=== PATIENT | female | born 1945 | race Caucasian/White ===

== ENCOUNTER 2019-01-10 08:39 | Day surgery (SDC) | payer MEDICARE, OTHER ==
[~2019-01-10 08:39] MED LIST: Lactated Ringers 1,000 ML IV ONE
[2019-01-10] MEDS ORDERED: DIPRIVAN 200 MG/20 ML IV ONE (08:40)
[2019-01-10] MEDS ORDERED: Ketamine HCl 50 MG/ML IJ ONE (08:40)
--- NOTE | 2019-01-10 08:44 | HP ---
DATE OF SURGERY: 01/10/2019 HISTORY OF PRESENT ILLNESS: The patient is a 72 year-old with no bloody stools, family history negative for colon cancer. No prior colonoscopy. Lost 30 pounds. She relays some psychosocial/environmental stressors. She does have some anemia of unclear etiology so she is in need of outpatient colonoscopy and EGD for further evaluation. PAST MEDICAL HISTORY: She has some iron deficiency anemia. History of depression, hypertension, reflux, osteoporosis in the past. PAST SURGICAL HISTORY: Cholecystectomy and tonsillectomy in the past. MEDICATIONS: Atenolol, divalproex, fluconazole, mirtazapine, Viibryd. ALLERGIES: NKDA. FAMILY HISTORY: Chronic obstructive pulmonary disease, hypertension, heart disease. SOCIAL HISTORY: No smoking or alcohol abuse. REVIEW OF SYSTEMS: Twelve systems reviewed per admission assessment otherwise pertinent for as noted above. PHYSICAL EXAMINATION: GENERAL: No acute distress. HEENT: Sclerae nonicteric. NECK: No JVD. CHEST: Clear to auscultation. CVS: Regular rate and rhythm. ABDOMEN: Soft, nontender. EXTREMITIES: No edema or cyanosis. NEURO: She has [place]'s chorea some choreiform movements and motions. IMPRESSION: Anemia unclear etiology. I feel the patient will benefit from EGD and colonoscopy to rule out upper and lower GI source. Shown the risk sheet and explained the procedure in detail but not limited to bleeding or infection, risk of bowel injury or perforation possibly requiring open procedure, risk of missed or nondiagnosis or incomplete exam possibly requiring barium enema, other studies or procedures. General risk of anesthesia or sedation but not limited to, risk of bowel prep. She understands and agrees to the planned procedure, will proceed with outpatient colonoscopy and EGD for anemia of unclear etiology.
[2019-01-10] MEDS ORDERED: Lactated Ringers 1,000 ML IV SCH (09:00)
[2019-01-10 12:28] VITALS: PULSE 82; O2SAT 97
[2019-01-10 12:44] VITALS: BP 148/68
--- NOTE | 2019-01-11 08:14 | OP ---
SURGERY DATE/TIME: 01/10/2019 1056 PREOPERATIVE DIAGNOSIS: Anemia of unclear etiology, need for upper and lower endoscopy to evaluate for upper or lower source. POSTOPERATIVE DIAGNOSES: 1) Mild hemorrhagic erosive gastritis. 2) Small benign appearing gastric polyp. 3) Small raised lesion versus hyperplastic lesion versus early polyp transverse colon and rectum. 4) Small internal hemorrhoids. 5) Mild diverticulosis. PROCEDURES: 1) EGD with cold biopsy of the antrum to evaluate for Helicobacter pylori. 2) Cold biopsy gastric polyp, removal of gastric polyps x2. 3) Colonoscopy to cecum, random cold biopsies of the colon to evaluate for macroscopic colitis. 4) Hot biopsy removal of small raised lesion versus hyperplastic lesion in the transverse colon and rectum. SURGEON: Dr. Chad Wallace. ANESTHESIA: MAC. ESTIMATED BLOOD LOSS: Minimal. INDICATIONS: As noted above. Risks and benefits explained in detail and not limited to and consent obtained. DESCRIPTION OF PROCEDURE AND FINDINGS: The patient is taken to the endoscopy room. MAC anesthesia introduced. After official time out and no disagreement with planned procedure, a bite block positioned. Video gastroscope easily passed down. The gastroesophageal junction noted to be about 35 cm, through the patent pylorus to the junction of the second and third portion of the duodenum. There were no signs of any ulcers or lesions in the proximal duodenum. Scope passed back in the stomach. She did have a few little petechial hemorrhages, some mild erosive gastritis. There were no signs of any obvious ulcers. No signs of any large masses or other mucosal lesions other than a couple small benign appearing probable fundal gland polyps removed with cold biopsy forceps. On retroflex there was a large hiatal hernia and just a slight weakness at the hiatus. Scope straightened. Gastroesophageal junction noted about 35 cm. Z-line was crisp. Esophagus grossly unremarkable. No signs of any mucosal lesions on withdrawal of the scope. The scope is withdrawn. The patient tolerated this part of the procedure well. Digital rectal exam did not reveal any rectal masses. She did have some small internal hemorrhoids. Video colonoscope inserted and passed up through the fair bowel prep with some liquidy stool suction irrigated clear. Slowly and carefully with external pressure down the descending, transverse, ascending colon to the cecum, appendiceal orifice and valve well visualized. It had just slight pinkness of the mucosa whether just prep irritation given her anemia, it was felt she warranted testing for microscopic colitis to evaluate for other sources of her anemia. Random cold biopsies are taken. Good hemostasis noted. The scope is slowly and carefully withdrawn. A small raised lesion versus hyperplastic lesion in transverse colon removed with hot biopsy forceps with brief bursts of cautery. Again in the rectum small raised lesion versus hyperplastic lesion removed with hot biopsy forceps. Good hemostasis noted. Otherwise she had some mild diverticulosis. Her prep overall was fair. She had some small internal and external hemorrhoids. There were no signs of any large polyps, masses or obstructing lesions other than the minimal petechial hemorrhages in the stomach. No major source of any GI bleed was identified on this study. The patient tolerated the procedure well. There was no family available to discuss the findings with.
== END 2019-01-10 12:46 | disposition home or self-care (01) ==
LOC: SDC 08:39
PROVIDERS: ATTEND Surgery
DX: K29.70 Gastritis, unspecified, without bleeding (principal); K31.7 Polyp of stomach and duodenum; K63.5 Polyp of colon; D64.9 Anemia, unspecified; K64.8 Other hemorrhoids; K57.30 Diverticulosis of large intestine without perforation or abscess without bleeding
CPT/HCPCS: 88305; 99100; J2704